=== PATIENT | male | born 1935 | race Caucasian/White ===

== ENCOUNTER 2018-09-14 11:58 | Outpatient (CLI) | payer MEDICARE ==
[2018-09-14 12:22] LABS: #Basophils 0.1 thou/uL (0.0-0.2); #Eosinphils 0.1 thou/uL (0.0-0.7); #Lymphocytes 1.8 thou/uL (1.20-3.40); #Monocytes 0.9 thou/uL (0.11-0.59); #Neutrophils 7.9 thou/uL (1.40-6.50); %Basophils 1.3 % (0.0-1.0); %Eosinophils 1.2 % (0.0-10.0); %Lymphocytes 16.7 % (21.0-51.0); %Monocytes 8.2 % (0.0-10.0); %Neutrophils 72.6 % (42.0-75.0); Hemoglobin 13.9 g/dL (14.0-18.0); Mean Corpuscular HGB CONC 32.9 g/dL (32.0-36.0); Mean Corpuscular Hemoglobin 30.2 pg (27.0-31.0); Mean Corpuscular Volume 91.7 fL (78.0-98.0); Mean Platelet Volume 7.2 fL (7.4-10.4); Platelet Count 409 thou/uL (130-400); RBC Distribution Width 11.7 % (11.5-14.5); White Blood Cell (WBC) Count 10.8 thou/uL (4.8-10.8)
[2018-09-14 12:39] LABS: ALT (SGPT) 23 U/L (8-55); AST (SGOT) 14 U/L (5-34); Albumin 4.2 g/dL (3.4-4.8); Alkaline Phosphatase 136 U/L (40-150); Anion Gap 18 mmol/L (10-20); BUN (Urea Nitrogen) 22 mg/dL (8.4-25.7); Bilirubin, Total 0.4 mg/dL (0.2-1.2); Calc. Creatinine Clearance 0 mL/min (70-130); Calcium 9.5 mg/dL (7.8-10.44); Carbon Dioxide 24 mmol/L (23-31); Chloride 101 mmol/L (98-107); Estimated GFR-MDRD 54; Globulin 3.4 g/dL (2.4-3.5); Glucose 198 mg/dL (83-110); Potassium 4.5 mmol/L (3.5-5.1); Protein, Total 7.6 g/dL (5.8-8.1); Sodium 138 mmol/L (136-145)
== END 2018-09-14 11:59 | disposition home or self-care (01) ==
LOC: MADLABBHPM 11:58
PROVIDERS: ATTEND Family Medicine
DX: E11.9 Type 2 diabetes mellitus without complications (principal); R53.1 Weakness
CPT/HCPCS: 80053; 83036; 85025

== ENCOUNTER 2018-09-29 14:36 | Outpatient (CLI) | payer MEDICARE ==
[2018-09-29 15:11] LABS: Anion Gap 18 mmol/L (10-20); BUN (Urea Nitrogen) 13 mg/dL (8.4-25.7); Calc. Creatinine Clearance 0 mL/min (70-130); Calcium 9.4 mg/dL (7.8-10.44); Carbon Dioxide 22 mmol/L (23-31); Chloride 103 mmol/L (98-107); Estimated GFR-MDRD 57; Glucose 163 mg/dL (83-110); Sodium 139 mmol/L (136-145)
--- NOTE | 2018-09-29 15:37 | RAD ---
PA AND LATERAL VIEWS CHEST: Date: 09/29/18 HISTORY: Chronic cough. FINDINGS: Comparison made with exam of 09/25/14. 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 The heart size is normal. No focal areas of consolidation, pneumotho races, or pleural effusions are seen. There are degenerative changes in the spine. Intrathecal leads in the thoracic spine. IMPRESSION: No acute process. POS: C
== END 2018-09-29 14:37 | disposition home or self-care (01) ==
LOC: MADLABBHPM 14:36
PROVIDERS: ATTEND Family Medicine
DX: C18.9 Malignant neoplasm of colon, unspecified (principal); N18.2 Chronic kidney disease, stage 2 (mild)
CPT/HCPCS: 36415; 71046; 80048; 82378